=== PATIENT | female | born 1965 | race Caucasian/White ===

== ENCOUNTER 2021-02-20 19:29 | Emergency (ER) | payer OTHER | END 2021-02-20 22:17 | disposition home or self-care (01) | LOC: FER 19:29 | DX: S86.212A Strain of muscle(s) and tendon(s) of anterior muscle group at lower leg level, left leg, initial encounter (principal); Z88.0 Allergy status to penicillin | CPT/HCPCS: 93971 ==

== ENCOUNTER 2021-09-06 06:59 | Emergency (ER) | payer OTHER | END 2021-09-06 08:09 | disposition home or self-care (01) | LOC: FER 06:59 | DX: T78.40XA Allergy, unspecified, initial encounter (principal); Q80.9 Congenital ichthyosis, unspecified; F17.210 Nicotine dependence, cigarettes, uncomplicated; Z88.0 Allergy status to penicillin; Z88.8 Allergy status to other drugs, medicaments and biological substances; Z91.030 Bee allergy status | CPT/HCPCS: J1200 ==

== ENCOUNTER 2021-09-09 10:43 | Emergency (ER) | payer OTHER ==
[2021-09-09 10:59] LABS: BASOPHIL 0.2 % (0-2); EOSINOPHIL 0.3 % (0-5); HCT 40.3 % (37.0-47.0); HGB 13.4 g/dl (12.5-16.0); LYMPHOCYTE 27.2 % (15-48); MCH 30.2 pg (25.0-31.0); MCHC 33.3 g/dL (32.0-36.0); MCV 90.8 fL (78.0-100.0); MPV 10.1 fL (6.0-9.5); NEUTROPHIL 65.6 % (41-80); NRBC 0; PLT 304 K/uL (150-400); RBC 4.44 M/uL (4.20-5.40); RDW 14.4 % (11.5-14.0); WBC 16.9 K/uL (4.0-10.5)
[2021-09-09 11:21] LABS: BUN/CREAT RATIO (CALC) 27.9 RATIO; C-REACTIVE PROTEIN 1.5 mg/dL (<=0.90); CREATININE 0.68 mg/dL (0.51-0.95); POTASSIUM 3.6 mmol/L (3.5-5.1)
== END 2021-09-09 15:27 | disposition left against medical advice (07) ==
LOC: FER 10:43
PROVIDERS: Emergency Medicine
DX: T78.2XXA Anaphylactic shock, unspecified, initial encounter (principal); F17.200 Nicotine dependence, unspecified, uncomplicated; Z88.0 Allergy status to penicillin; Z91.030 Bee allergy status; Z88.8 Allergy status to other drugs, medicaments and biological substances; Z53.29 Procedure and treatment not carried out because of patient's decision for other reasons
CPT/HCPCS: 36415; 71045; 80048; 85025; 86140; 96372; J0171; J1200; J2930; J7030